=== PATIENT | male | born 2000 | race Caucasian/White ===

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

== ENCOUNTER 2021-11-10 10:18 | Outpatient (CLI) | payer OTHER, SELFPAY ==
--- NOTE | ~2021-11-10 | US_ITS ---
EXAMINATION: US thyroid EXAM DATE: 11/10/2021 10:44 INDICATION: R79.89 - Other specified abnormal findings of blood chemi... TECHNIQUE: Multiple grayscale and Doppler images of the thyroid were obtained (by a technologist who performed the scan) and subsequently reviewed. Individual nodules and recommendations may be reporte d in accordance with TI-RADS system as designated by the 2017 ACR White Paper TI-RADS committee. Comp arison is made to prior examination from 08/18/2014. FINDINGS: The right thyroid lobe measures 3.6 x 1.4 x 1.1 cm, the left measuring 3.8 x 1.1 x 0.8 cm. Several an echoic cysts, 3 mm or less in size unchanged, not clinically significant findings. IMPRESSION: Unremarkable thyroid ultrasound. Reviewed, dictated and finalized at location B.
[2021-11-10 12:34] LABS: Free T4 Free Thyroxine 0.85 ng/mL (0.78-2.19)
== END 2021-11-10 10:19 | disposition home or self-care (01) ==
LOC: ANHIMG 10:20
PROVIDERS: PCP Family Medicine; Visit Provider Nurse Practitioner Family
DX: R79.89 Other specified abnormal findings of blood chemistry (principal); E04.1 Nontoxic single thyroid nodule
CPT/HCPCS: 36415; 76536; 84439; 84443

== ENCOUNTER 2022-03-03 13:14 | Emergency (ER) | payer OTHER, SELFPAY ==
--- NOTE | ~2022-03-03 | XR_ITS ---
EXAMINATION: XR chest 1V portable DATE: 03/03/2022 14:50 INDICATION: Shortness of breath TECHNIQUE: frontal view of the chest was obtained. COMPARISON: None FINDINGS: The lungs are clear with no focal airspace opacities, pulmonary edema, pleural effusion or pneumothor ax. The cardiomediastinal silhouette is normal. Visualized bones and soft tissues are unremarkable. IMPRESSION: 1. Normal chest radiograph. Reviewed, dictated and finalized at location A. IMPRESSION: 1. Normal chest radiograph.
[2022-03-03 13:48] VITALS: BP 110/68; PULSE 79; RESP 18; TEMP 36.8; O2SAT 98
--- NOTE | 2022-03-03 15:22 | ED.URI ---
HPI - URI/Sore Throat General Chief Complaint: Upper Respiratory Infection Stated Complaint: nausea headache Time Seen by Provider: 03/03/22 14:26 Source: patient, family and RN notes reviewed Mode of arrival: ambulatory Limitations: no limitations History of Present Illness HPI Narrative: This is 21 year old male who presents for evaluation of possible covid. Patient developed chills, body aches, runny nose, congestion, sore throat yesterday. He states he is here basically for covid test. His mother is at bedside and she reports his PCP ordered him a covid . He told PCP he has shortness of breath so he was told to come to ER. He states he thinks his sob is due to anxiety . He denies chest pain, fever. He works on [employer] in [place] so he works with the public. Related Data Home Medications Medication Instructions Recorded Confirmed paroxetine HCl 10 mg tablet 10 mg PO DAILY 11/02/21 02/10/22 prazosin 2 mg capsule 2 mg PO QPM 11/02/21 02/10/22 ergocalciferol (vitamin D2) 1,250 1,250 mcg PO WEEKLY 12/02/21 02/10/22 mcg (50,000 unit) capsule propranolol 10 mg tablet 10 mg PO TID 12/02/21 02/10/22 Allergies Allergy/AdvReac Type Severity Reaction Status Date / Time No Known Allergies Allergy Verified 03/03/22 14:23 Review of Systems Review of Systems: All systems reviewed & are unremarkable except as noted in HPI and below Constitutional: Constitutional: Reports chills and Denies fever(s) ENT: Reports nasal congestion and Reports sore throat Cardiovascular: Cardiovascular: Denies chest pain Respiratory: Respiratory: Reports cough and Reports dyspnea Gastrointestinal: Gastrointestinal: Denies abdominal pain, Denies diarrhea, Reports nausea and Denies vomiting Neurologic: Denies syncope and Reports headache(s) [facility] Past Medical History Medical History Anxiety BMI 29.0-29.9,adult BMI 30.0-30.9,adult BMI 31.0-31.9,adult BMI greater than 30 Depression Hx of concussion 2019 Surgical History Surgical History No pertinent past surgical history Family History Family History Father Diabetes mellitus Seizure Hypertension Hyperlipidemia Mother No problems noted. Sibling No problems noted. Social History Social History Smoking status: Never smoker Second hand tobacco smoke exposure: No Alcohol intake: never Substance use: never Substance use type: does not use Gender identity (if verbalized by the patient): Male Exam Narrative: GENERAL: Well-appearing, well-nourished, and in no acute distress. HEAD: Normocephalic, atraumatic EYES: PERRLA and EOMI, conjunctiva clear without discharge EARS: TM's clear bilaterally without erythema or dullness NECK: Supple, without lymphadenopathy or mass RESPIRATORY: No respiratory distress, Airway patent, Respirations non-labored, Clear to auscultation without rales, rhonchi or wheeze HEART: Regular rate and rhythm. No murmur heard. Normal peripheral pulses. ABDOMEN: Soft, nontender, nondistended, normal active bowel sounds. No masses. No rebound or guarding, No organomegaly. EXTREMITIES: No edema, normal strength with full range of motion. SKIN: Warm, dry, normal color without rash NEURO: Alert and oriented x3. CN 2-12 grossly intact. No focal deficits. PSYCH: Normal mood and affect. HENMT: General nose exam: Nasal discharge present clear Face and sinus: normal facial exam Mouth: Yes moist mucous membranes Other: bilateral tonsillar enlargement with erythema, no exudate Course Reevaluation(s) Reevaluation #1: I discussed with patient labs are normal. PAtient is stable and not hypoxic Date: 03/03/22 Time: 16:33 Vital Signs Vital signs: Vital Signs Temperature 98.3 F 03/03/22
[2022-03-03 16:09] LABS: SARS-CoV-2 RNA PCR Negative
[2022-03-03 16:58] VITALS: PULSE 83; RESP 17; TEMP 36.9; O2SAT 99
== END 2022-03-03 16:57 | disposition home or self-care (01) ==
PROVIDERS: Emergency Provider General Practice; PCP Family Medicine
DX: J06.9 Acute upper respiratory infection, unspecified (principal); Z20.822 Contact with and (suspected) exposure to COVID-19; F41.9 Anxiety disorder, unspecified; F32.A Depression, unspecified
CPT/HCPCS: 71045; 87081; 87804; 87880; 99283; C9803; U0003; U0005